=== PATIENT | male | born 1955 | race Caucasian/White ===

== ENCOUNTER 2025-01-13 20:44 | Inpatient (IN) | payer MEDICARE, OTHER ==
[~2025-01-13] VITALS: Ht 180.3 cm; Wt 68.2 kg
[2025-01-13] MEDS ORDERED: APIX5TAB PO (20:48)
[2025-01-13] MEDS ORDERED: ASPI-1450 PO (20:48)
[2025-01-13] MEDS: OXYMETAZOLINE HCL 0.05% 15 ML NASAL SPRAY NASAL ONE (22:23)
[2025-01-13] MEDS: SILVER NITRATE APPLICATOR 1 EA STICK TP ONE (22:23)
[2025-01-13 23:19] LABS: CALCIUM, TOTAL 10.0 mg/dL (8.8-10.5); CREATININE 1.06 mg/dL (0.60-1.30); GLOMERULAR FILTR. RATE CALC > 60 mL/min (>60); GLUCOSE,RANDOM 144 mg/dL (70-110); SODIUM SERUM 140 mmol/L (136-145); UREA NITROGEN, BLOOD 25 mg/dL (7-18)
[2025-01-13 23:28] LABS: ALCOHOL, BLOOD (SERUM) < 3 mg/dL (0-10); LACTIC ACID 0.8 mmol/L (0.4-2.0)
[2025-01-13 23:34] LABS: NUCLEATED RED BLOOD CELLS 0.1 % (0.0-0.0); RED BLOOD CELL COUNT(AUTO) 5.58 MIL/uL (4.50-5.90); RED CELL DISTRIBUTION WIDTH 19.3 % (11.5-14.5); WHITE BLOOD COUNT (AUTO) 10.3 K/uL (4.5-11.0)
[2025-01-13 23:35] LABS: PLATELET COUNT (AUTO) 451 K/uL (150-450)
[2025-01-13 23:36] LABS: BAND NEUTROPHILS % (MANUAL) 4 % (0-5); BASOPHILS % (MANUAL) 2 % (0-2); EOSINOPHILS % (MANUAL) 2 % (1-6); LYMPHOCYTES % (MANUAL) 11 % (22-44); MONOCYTES % (MANUAL) 12 % (2-9); RBC MORPHOLOGY COMMENT ABNORMAL RBC MORPH; SEGMENTED NEUTROPHILS % 69 % (40-70)
[2025-01-13] MEDS: POTASSIUM CHLORIDE 20 MEQ ER TABLET PO ONE (23:39)
[2025-01-14] MEDS: HEPARIN SODIUM,PORCINE 5,000 UNITS/ML VIAL SQ SCH
[2025-01-14] MEDS ORDERED: ACETAMINOPHEN 325 MG TABLET PO PRN
[2025-01-14] MEDS ORDERED: ONDANSETRON HCL 4 MG/2 ML VIAL IVP PRN
[2025-01-14] MEDS: POTASSIUM CHLORIDE 20 MEQ ER TABLET PO ONE (00:03)
[2025-01-14] MEDS: CefTRIAXone 1 GM/DEXTROSE 50 ML IV ONE (00:15)
[2025-01-14] MEDS: VANCOMYCIN 1GM/WATER(PEG/NADA) 200 ML IV ONE (00:37)
[2025-01-14] MEDS: MORPHINE SULFATE 2 MG/ML SYRINGE IVP ONE (00:38)
[2025-01-14] MEDS ORDERED: SIRO1TAB PO (01:46)
[2025-01-14] MEDS ORDERED: MYCO180T12 PO (01:46)
[2025-01-14] MEDS: ZOLPIDEM TARTRATE 10 MG TABLET PO PRN (02:02)
[2025-01-14 06:07] LABS: CALCIUM, TOTAL 9.9 mg/dL (8.8-10.5); CREATININE 1.13 mg/dL (0.60-1.30); GLOMERULAR FILTR. RATE CALC > 60 mL/min (>60); GLUCOSE,RANDOM 135 mg/dL (70-110); SODIUM SERUM 139 mmol/L (136-145); UREA NITROGEN, BLOOD 23 mg/dL (7-18)
[2025-01-14 06:08] LABS: PLATELET COUNT (AUTO) 464 K/uL (150-450); RED BLOOD CELL COUNT(AUTO) 5.80 MIL/uL (4.50-5.90); RED CELL DISTRIBUTION WIDTH 19.3 % (11.5-14.5); WHITE BLOOD COUNT (AUTO) 10.6 K/uL (4.5-11.0)
[2025-01-14] MEDS: RINGERS SOLUTION,LACTATED 1,000 ML IV SCH (06:45)
[2025-01-14] MEDS ORDERED: MAGNESIUM OXIDE 400 MG TABLET PO PRN (06:45)
[2025-01-14] MEDS ORDERED: MAGNESIUM SULFATE 4 GM/WATER 100 ML IV PRN (06:45)
[2025-01-14] MEDS ORDERED: MAGNESIUM SULFATE 2 GM/WATER 50 ML IV PRN (06:45)
[2025-01-14] MEDS: APIXABAN 5 MG TABLET PO SCH (09:00)
[2025-01-14] MEDS: DOCUSATE SODIUM 100 MG CAPSULE PO SCH (09:06)
[2025-01-14] MEDS: POTASSIUM CHLORIDE 20 MEQ ER TABLET PO PRN (09:06)
[2025-01-14] MEDS: SIROLIMUS 1 MG TABLET PO ONE (11:30)
[2025-01-14] MEDS ORDERED: PIPERACILLIN/TAZO 3.375 GM/D5W 50 ML IV ONE (16:00)
[2025-01-14 16:53] VITALS: BP 156/106; PULSE 89; RESP 18; TEMP 97.7; O2SAT 94
[2025-01-14] MEDS ORDERED: SODIUM CHLORIDE 0.9% 500 ML IV ONE (17:27)
[2025-01-14] MEDS: PIPERACILLIN/TAZO 3.375 GM/D5W 50 ML IV SCH (18:37)
[2025-01-14] MEDS ORDERED: CLON0.3T PO (19:07)
[2025-01-14] MEDS ORDERED: METO25 PO (19:07)
[2025-01-14] MEDS ORDERED: EMPA10TA3 PO (19:07)
[2025-01-14 20:34] VITALS: BP 132/90; PULSE 96; RESP 19; TEMP 98.1; O2SAT 98
[2025-01-14] MEDS: MORPHINE SULFATE 2 MG/ML SYRINGE IVP PRN (21:42)
[2025-01-15 06:30] VITALS: BP 145/86; PULSE 83; RESP 18; TEMP 97.5; O2SAT 96
[2025-01-15 06:31] LABS: CALCIUM, TOTAL 9.1 mg/dL (8.8-10.5); CREATININE 1.18 mg/dL (0.60-1.30); GLOMERULAR FILTR. RATE CALC > 60 mL/min (>60); GLUCOSE,RANDOM 131 mg/dL (70-110); SODIUM SERUM 136 mmol/L (136-145); UREA NITROGEN, BLOOD 29 mg/dL (7-18)
[2025-01-15 08:27] VITALS: BP 145/93; PULSE 94; RESP 18; TEMP 98.7; O2SAT 97
[2025-01-15] MEDS: BUMETANIDE 1 MG TABLET PO SCH (08:34)
[2025-01-15] MEDS: MYCOPHENOLATE SODIUM 180 MG DR TABLET PO SCH (08:34)
[2025-01-15] MEDS: SIROLIMUS 1 MG TABLET PO SCH (08:34)
[2025-01-15] MEDS ORDERED: POTA-206 PO (08:48)
[2025-01-15] MEDS ORDERED: FOLI-130 PO (08:50)
[2025-01-15] MEDS ORDERED: MECO10005 PO (08:50)
[2025-01-15] MEDS: POTASSIUM CHL 10 MEQ/WATER 50 ML IV PRN (09:09)
[2025-01-15] MEDS: POTASSIUM CHL 10 MEQ/WATER 50 ML IV SCH (11:45)
[2025-01-15] MEDS: POTASSIUM CHLORIDE 10% 40 MEQ/30 ML LIQUID UDCUP PO ONE ×2 (12:13→20:48)
[2025-01-15 15:07] VITALS: BP 153/78; PULSE 84; RESP 18; TEMP 98.4; O2SAT 96
[2025-01-15 18:05] LABS: CALCIUM, TOTAL 9.9 mg/dL (8.8-10.5); CREATININE 1.12 mg/dL (0.60-1.30); GLOMERULAR FILTR. RATE CALC > 60 mL/min (>60); GLUCOSE,RANDOM 137 mg/dL (70-110); SODIUM SERUM 135 mmol/L (136-145); UREA NITROGEN, BLOOD 29 mg/dL (7-18)
[2025-01-15] MEDS: METOPROLOL TARTRATE 50 MG TABLET PO SCH (20:58)
[2025-01-15] MEDS: HYDROCODONE/ACETAMINOPHEN 5-325 MG TABLET PO PRN (20:58)
[2025-01-15] MEDS: POTASSIUM CHLORIDE 20 MEQ ER TABLET PO SCH (21:00)
[2025-01-15 23:17] VITALS: BP 109/84; PULSE 71; RESP 18; O2SAT 99
[2025-01-16 06:19] VITALS: BP 113/71; PULSE 69; RESP 18; TEMP 97.9; O2SAT 98
[2025-01-16 08:00] VITALS: BP 114/80; PULSE 71; RESP 17; TEMP 97.2; O2SAT 99
[2025-01-16] MEDS: ASPIRIN 81 MG CHEWABLE TABLET PO SCH (09:00)
[2025-01-16] MEDS: FOLIC ACID 1 MG TABLET PO SCH (09:40)
[2025-01-16] MEDS: CYANOCOBALAMIN 500 MCG TABLET PO SCH (09:41)
[2025-01-16] MEDS: EMPAGLIFLOZIN 10 MG TABLET PO SCH (09:41)
[2025-01-16 12:38] LABS: CALCIUM, TOTAL 9.6 mg/dL (8.8-10.5); CREATININE 0.98 mg/dL (0.60-1.30); GLOMERULAR FILTR. RATE CALC > 60 mL/min (>60); GLUCOSE,RANDOM 149 mg/dL (70-110); SODIUM SERUM 134 mmol/L (136-145); UREA NITROGEN, BLOOD 25 mg/dL (7-18)
[2025-01-16 12:52] LABS: PHOSPHORUS 2.7 mg/dL (2.5-4.9)
[2025-01-16] MEDS ORDERED: ZOLP-280 PO ×2 (14:06→14:51)
== END 2025-01-16 16:40 | disposition home or self-care (01) | DRG 638 ==
LOC: EMS 20:44 → EDH 23:58 → 4E 01-14 16:24
PROVIDERS: ADMIT Internal Medicine; ATTEND Internal Medicine
DX: E11.69 Type 2 diabetes mellitus with other specified complication (principal); I13.2 Hypertensive heart and chronic kidney disease with heart failure and with stage 5 chronic kidney disease, or end stage renal disease; S22.39XA Fracture of one rib, unspecified side, initial encounter for closed fracture; Z94.0 Kidney transplant status; E87.6 Hypokalemia; N17.0 Acute kidney failure with tubular necrosis; R04.0 Epistaxis; I48.0 Paroxysmal atrial fibrillation; E11.51 Type 2 diabetes mellitus with diabetic peripheral angiopathy without gangrene; E86.0 Dehydration; E78.5 Hyperlipidemia, unspecified; K21.9 Gastro-esophageal reflux disease without esophagitis; I50.9 Heart failure, unspecified; E11.22 Type 2 diabetes mellitus with diabetic chronic kidney disease; X58.XXXA Exposure to other specified factors, initial encounter; Z79.623 Long term (current) use of mammalian target of rapamycin (mTOR) inhibitor; Z79.01 Long term (current) use of anticoagulants; Z86.718 Personal history of other venous thrombosis and embolism; Z86.73 Personal history of transient ischemic attack (TIA), and cerebral infarction without residual deficits; Y93.89 Activity, other specified; Y92.89 Other specified places as the place of occurrence of the external cause; Y99.8 Other external cause status
CPT/HCPCS: 80048; 80195; 82040; 83605; 83735; 84100; 84132; 85025; 87040; 93926; 93971; 99285; G0378; G0480; J0696; J2270; J2543; J3480; J7040; J7120; J7518; J7520

== ENCOUNTER 2025-02-07 20:06 | Emergency (ER) | payer MEDICARE, OTHER ==
[~2025-02-07] VITALS: Ht 180.3 cm; Wt 82.7 kg
[~2025-02-07 20:06] MED LIST: APIX5TAB PO; ASPI-1450 PO; CLON0.3T PO; EMPA10TA3 PO; FOLI-130 PO; MECO10005 PO; METO25 PO; MYCO180T12 PO; POTA-206 PO; SIRO1TAB PO; ZOLP-280 PO
[2025-02-07 21:13] LABS: PLATELET COUNT (AUTO) 386 K/uL (150-450); RED BLOOD CELL COUNT(AUTO) 5.30 MIL/uL (4.50-5.90); RED CELL DISTRIBUTION WIDTH 19.4 % (11.5-14.5); WHITE BLOOD COUNT (AUTO) 11.5 K/uL (4.5-11.0)
[2025-02-07 21:16] LABS: CALCIUM, TOTAL 9.6 mg/dL (8.8-10.5); CREATININE 0.93 mg/dL (0.60-1.30); GLOMERULAR FILTR. RATE CALC > 60 mL/min (>60); GLUCOSE,RANDOM 214 mg/dL (70-110); SODIUM SERUM 131 mmol/L (136-145); UREA NITROGEN, BLOOD 75 mg/dL (7-18)
[2025-02-07 21:26] LABS: TROPONIN I-HIGH SENSITIVITY 20 ng/L (<76)
[2025-02-07 21:59] LABS: RBC MORPHOLOGY COMMENT ABNORMAL RBC MORPH
[2025-02-07 22:15] LABS: APPEARANCE,URINE CLEAR (CLEAR); GLUCOSE, URINE (UA) >=1000 mg/dL (NEGATIVE); LEUKOCYTE ESTERASE ,URINE NEGATIVE (NEGATIVE); NITRATE,URINE NEGATIVE (NEGATIVE); OCCULT BLOOD,URINE NEGATIVE (NEGATIVE); SPECIFIC GRAVITIY, URINE 1.015 (1.003-1.030)
[2025-02-07] MEDS: KETOROLAC TROMETHAMINE 30 MG/ML VIAL IM ONE (23:02)
[2025-02-07] MEDS: ACETAMINOPHEN 500 MG TABLET PO ONE (23:02)
[2025-02-08 00:38] VITALS: BP 133/92; PULSE 79; RESP 18; TEMP 98.3; O2SAT 96
== END 2025-02-08 00:44 | disposition home or self-care (01) ==
LOC: EMS 20:06
DX: M25.562 Pain in left knee (principal); E11.65 Type 2 diabetes mellitus with hyperglycemia; I10 Essential (primary) hypertension; R06.02 Shortness of breath; I48.91 Unspecified atrial fibrillation; Z79.01 Long term (current) use of anticoagulants; Z79.623 Long term (current) use of mammalian target of rapamycin (mTOR) inhibitor; Z79.624 Long term (current) use of inhibitors of nucleotide synthesis; Z79.82 Long term (current) use of aspirin; Z79.899 Other long term (current) drug therapy
CPT/HCPCS: 99285; 80048; 81001; 83880; 84484; 85025; 36415; 73564; 82962; 93005; J1885